=== PATIENT | female | born 1975 | race Caucasian/White ===

== ENCOUNTER 2021-01-21 17:43 | Emergency (ER) | payer OTHER ==
[~2021-01-21] VITALS: Ht 170.2 cm; Wt 110.7 kg
[2021-01-21 18:01] VITALS: BP 138/71
--- NOTE | 2021-01-21 18:25 | NUR ---
[employer] INSTRUMENT TECHNICIAN AT BEDSIDE FOR XRAY.
[2021-01-21] MEDS ORDERED: IBUP-1955 PO (18:56)
[2021-01-21] MEDS ORDERED: ACETAMINOPHEN ES 500 MG TABLET ONE (19:22)
[2021-01-21] MEDS ORDERED: ACETAMINOPHEN 325 MG TABLET PO ONE (19:30)
== END 2021-01-21 19:26 | disposition home or self-care (01) ==
LOC: ER 17:48 → EDSEX 17:48 → ER 19:26
DX: M79.672 Pain in left foot (principal); X50.1XXA Overexertion from prolonged static or awkward postures, initial encounter; Y93.89 Activity, other specified; Y92.098 Other place in other non-institutional residence as the place of occurrence of the external cause; Y99.8 Other external cause status
CPT/HCPCS: 73630-TC